=== PATIENT | female | born 1975 | race Caucasian/White ===

== ENCOUNTER → 2017-11-30 | Outpatient (CLI) | payer BC | END | disposition home or self-care (01) | LOC: KCIC MAMMO 08:28 | DX: Z12.31 Encounter for screening mammogram for malignant neoplasm of breast (principal) | CPT/HCPCS: 77067 ==

== ENCOUNTER → 2017-12-12 | Outpatient (CLI) | payer BC | END | disposition home or self-care (01) | LOC: KCIC US 08:38 | DX: R92.8 Other abnormal and inconclusive findings on diagnostic imaging of breast (principal) | CPT/HCPCS: 76641 ==

== ENCOUNTER → 2019-07-13 | Outpatient (CLI) | payer BC ==
--- NOTE | 2019-07-13 19:29 | KCIC ---
EXAM: AP, oblique and lateral views of the right foot AP, oblique and lateral views of the right ankle DATE: 07/13/2019 12:00 AM INDICATION: Right foot and ankle pain COMPARISON: No Prior FINDINGS/ IMPRESSION: 1. No evidence of acute fracture or dislocation. 2. Type I accessory navicular 3. Calcaneal enthesopathy 4. Small ossification at the inferior portion of the lateral malleolus likely from old avulsion injury. 5. 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 Electronically signed by: Herb Fitch MD (07/13/2019 4:34 PM) [facility]
--- NOTE | 2019-07-13 19:29 | KCIC ---
EXAM: AP, oblique and lateral views of the right foot AP, oblique and lateral views of the right ankle DATE: 07/13/2019 12:00 AM INDICATION: Right foot and ankle pain COMPARISON: No Prior FINDINGS/ IMPRESSION: 1. No evidence of acute fracture or dislocation. 2. Type I accessory navicular 3. Calcaneal enthesopathy 4. Small ossification at the inferior portion of the lateral malleolus likely from old avulsion injury. 5. 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 Electronically signed by: Herb Fitch MD (07/13/2019 4:34 PM) [facility]
== END | disposition home or self-care (01) ==
LOC: KCIC 11:50
PROVIDERS: ATTEND Internal Medicine
DX: M79.671 Pain in right foot (principal); M77.31 Calcaneal spur, right foot
CPT/HCPCS: 73610; 73630